=== PATIENT | female | born 1960 | race Caucasian/White ===

== ENCOUNTER 2016-10-19 15:27 | Emergency (ER) | payer OTHER ==
[~2016-10-19] VITALS: Ht 157.5 cm; Wt 110.0 kg
[~2016-10-19 15:27] MED LIST: CLON-379 PO; MECLIZINE PO
[2016-10-19 15:34] VITALS: Ht 157.5 cm; Wt 110.0 kg
[2016-10-19] MEDS ORDERED: SOD CHLORIDE 0.9% 500 ML IV STA (15:49)
[2016-10-19] MEDS ORDERED: ONDANSETRON 4 MG INJ IV STA (15:49)
[2016-10-19] MEDS ORDERED: BELLADONNA/PHENOBARBITAL TAB PO STA (15:49)
[2016-10-19] MEDS ORDERED: LIDOCAINE/MYLANTA 40 ML BTL PO STA (15:49)
[2016-10-19] MEDS ORDERED: ASPIRIN 325 MG TAB PO ONE (16:00)
[2016-10-19] MEDS ORDERED: LORAZEPAM 2 MG INJ IV ONE (16:00)
[2016-10-19 16:07] LABS: ADD UMIC YES; URINE BILIRUBIN (Dip) NEGATIVE (NEGATIVE); URINE BLOOD (Dip) TRACE (NEGATIVE); URINE COLOR LT. YELLOW (YELLOW); URINE GLUCOSE (Dip) NEGATIVE (NEGATIVE); URINE KETONES (Dip) NEGATIVE (NEGATIVE); URINE LEUKOCYTE ESTERASE (Dip) 2+ (NEGATIVE); URINE NITRITE (Dip) NEGATIVE (NEGATIVE); URINE TOTAL PROTEIN (Dip) TRACE (NEGATIVE); URINE UROBILINOGEN (Dip) 1.0 E.U./dL (0.1-1.0)
[2016-10-19 16:08] LABS: EOSINOPHILS % 0.5 % (0.0-7.0); HEMOGLOBIN 12.4 g/dl (12.0-16.0); LYMPHOCYTES # 0.5 10^3/ul (0.8-2.9); LYMPHOCYTES % 6.8 % (15.0-51.0); MEAN CORPUSCULAR HEMOGLOBIN 27.5 pg (29.0-33.0); MEAN CORPUSCULAR HGB CONC 33.5 g/dl (32.0-37.0); MEAN CORPUSCULAR VOLUME 82.1 fl (82.0-101.0); MEAN PLATELET VOLUME 6.6 fl (7.4-10.4); MONOCYTE # 0.4 10^3/ul (0.3-0.9); MONOCYTES % 5.8 % (0.0-11.0); NEUTROPHIL # 6.2 10^3/ul (1.6-7.5); NEUTROPHILS % 86.9 % (39.0-77.0); PLATELET COUNT 210 10^3/UL (140-440); RED BLOOD COUNT 4.51 10^6/ul (4.20-5.40); RED CELL DISTRIBUTION WIDTH 15.8 % (11.5-14.5); UNCORRECTED WBC 7.1 10^3/ul (4.8-10.8); WHITE BLOOD COUNT 7.1 10^3/ul (4.8-10.8)
--- NOTE | 2016-10-19 16:11 | RADRPT ---
PROCEDURE: XR Chest. CLINICAL INDICATION: Chest pain TECHNIQUE: Single portable view of the chest was obtained COMPARISON: 04/02/15 FINDINGS: The heart is enlarged. The lungs are clear. There is no pleural effusion or pneumothorax. RPTAT: AA IMPRESSION: Mild Cardiomegaly, stable. .Navdeep Obrien MD, MD Date Time Electronically viewed and signed by .Navdeep Obrien MD, on 10/19/2016 16:10 .S/
[2016-10-19 16:15] LABS: ALBUMIN 4.2 g/dl (3.3-4.9); CHLORIDE 100 mmol/L (97-110); POTASSIUM 4.5 mmol/L (3.5-5.1); SODIUM 140 mmol/L (135-144)
[2016-10-19 16:16] LABS: INR 0.98
[2016-10-19 16:17] LABS: BILIRUBIN,INDIRECT 0.4 mg/dl (0-1.1); BILIRUBIN,TOTAL 0.4 mg/dl (0.2-1.3); CREATININE 0.69 mg/dl (0.44-1.00)
[2016-10-19 16:18] LABS: ALANINE AMINOTRANSFERASE 34 IU/L (13-69); ALBUMIN/GLOBULIN RATIO 1.13; ALKALINE PHOSPHATASE 102 IU/L (42-121); ANION GAP 20 (8-16); ASPARTATE AMINO TRANSFERASE 30 IU/L (15-46); BLOOD UREA NITROGEN 14 mg/dl (7-20); CARBON DIOXIDE 25 mmol/L (21-31); GLUCOSE 110 mg/dl (70-220); TOTAL PROTEIN 7.9 g/dl (6.1-8.1)
[2016-10-19 16:20] LABS: CONDITION 1; LH ANALYZER COMMENTS 1
[2016-10-19 16:22] LABS: BACTERIA,URINE FEW; SQUAMOUS EPITHELIAL CELL,UR FEW
[2016-10-19] MEDS ORDERED: CALC-176 PO (16:26)
[2016-10-19] MEDS ORDERED: ERGO500014 PO (16:26)
[2016-10-19] MEDS ORDERED: ASPI-664 PO (16:27)
[2016-10-19] MEDS ORDERED: GABA100C14 PO (16:27)
[2016-10-19] MEDS ORDERED: LOSA100T7 PO (16:28)
[2016-10-19] MEDS ORDERED: PANT40TA3 PO (16:28)
[2016-10-19] MEDS ORDERED: HYD25 PO (16:29)
[2016-10-19] MEDS ORDERED: CEPHALEXIN 500 MG CAP PO ONE (16:30)
[2016-10-19] MEDS ORDERED: METO-429 PO (16:30)
[2016-10-19 16:31] LABS: TROPONIN-I < 0.010 ng/ml (0.00-0.12)
[2016-10-19] MEDS ORDERED: CEPH-443 PO (17:16)
--- NOTE | 2016-10-19 17:23 | ERD ---
ER Documentation Chief Complaint Date/Time DATE: 10/19/16 TIME: 17:18 Chief Complaint PRESSURE LIKE PAIN @ THELEFT AND MID CHEST TO EPIGASTRIC PAIN HPI 56-year-old woman presents with multiple complaints including left-sided sharp nonexertional nonradiating chest pain, epigastric burning pain similar to previous episodes, generalized weakness 2 days, and intermittent blanching and paresthesias, and pain to her fingertips. She states the symptoms in her fingers have been present intermittently for many years and with the discoloration she experiences pain and paresthesias to her fingertips. She also states the chest pain has been recurrent and intermittent about once to twice per week for many years. She denies fevers or chills, no dysuria, no loss of consciousness, no headache or neck pain, no blurry vision, no vomiting or diarrhea. ROS All systems reviewed and are negative except as per history of present illness. Medications Home Meds Active Scripts Cephalexin* (Keflex*) 500 Mg Capsule, 500 MG PO QID for 5 Days, CAP Prov:MONAE PRADO MD 10/19/16 Reported Medications Metoprolol Tartrate* (Lopressor*) 50 Mg Tab, 50 MG PO BID, #60 TAB 10/19/16 Hydrochlorothiazide* (Hydrochlorothiazide*) 25 Mg Tab, 25 MG PO DAILY, #30 TAB 10/19/16 Losartan Potassium* (Losartan Potassium*) 100 Mg Tablet, 100 MG PO DAILY, TAB 10/19/16 Pantoprazole* (Protonix*) 40 Mg Tablet.dr, 40 MG PO DAILY, TAB 10/19/16 Gabapentin* (Gabapentin*) 100 Mg Capsule, 100 MG PO DAILY, #30 CAP 10/19/16 Aspirin* (Aspirin* EC) 81 Mg Tablet.dr, 81 MG PO DAILY, TAB 10/19/16 Ergocalciferol* (Drisdol* (Vitamin D2)) 50,000 Unit Capsule, 95676 UNIT PO Q7D, CAP 10/19/16 Calcium Cmb 2-Mag Cmb 12-Vit D3 (Calcium 500) 1 Each Tablet, 1 TAB PO BID, TAB 10/19/16 Discontinued Reported Medications [Meclizine] No Conflict Check, 0 PO 08/24/13 Discontinued Scripts Clonidine Hcl* (Clonidine Hcl*) 0.1 Mg Tab, 0.1 MG PO BID Y for htn, #30 Prov:MEEK KELLEY 04/02/15 Allergies Allergies: Coded Allergies: ibuprofen (Verified Allergy, Unknown, 10/19/16) PMhx/Soc Hypertension, obesity, anxiety, Raynauds, gastritis, obesity History of Surgery: No Anesthesia Reaction: No Hx Respiratory Disorders: No Hx Cardiac Disorders: Yes (HTN ) Hx Psychiatric Problems: No Hx Miscellaneous Medical Probl: Yes (VERTIGO) Hx Alcohol Use: No Hx Substance Use: No Hx Tobacco Use: No Smoking Status: Never smoker FmHx Family History: No diabetes Physical Exam Vitals Vital Signs Date Time Temp Pulse Resp B/P Pulse Ox O2 Delivery O2 Flow Rate FiO2 10/19/16 17:31 98.6 86 18 148/86 99 Room Air 2.0 Nasal Cannula 10/19/16 16:31 90 18 168/79 99 Nasal Cannula 2.0 10/19/16 15:34 98 103 176/78 97 Physical Exam GENERAL: Well-developed, well-nourished, well-hydrated, in no apparent distress , anxious HEENT: Moist mucous membranes, pink conjunctiva, no cervical spine tenderness or step-off deformities, no goiter, no jaundice or icterus, extraocular movements intact without pain. No submandibular induration, and no pharyngeal erythema NEURO: Alert and oriented 3, cranial nerves II through XII intact bilaterally, pupils equal round reactive to light, no focal deficits or facial asymmetry, sensation intact distally Strength 5/5 in upper and lower extremities bilaterally CARDIAC: Regular rate and rhythm, no murmurs rubs or gallops LUNGS: Clear bilaterally no wheezing crackles or stridor ABDOMEN: Soft nontender, no guarding, no rigidity, no rebound, no psoas sign no obturator sign. Normoactive bowel sounds SKIN: Warm and dry to touch, no abrasions, contusions, or hematomas, no lacerations, no ecchymosis, no target lesions, and without ulcers EXTREMITIES: No clubbing cyanosis or edema, calves are bilaterally symmetrical, no Homans sign, no popliteal cord sign. Distal pulses equal and bilateral PSYCH: Appears in Result Diagram: 10/19/16 1550 10/19/16 1550 Results 24 hrs Laboratory Tests Test 10/19/16 15:50 Alanine Aminotransferase (ALT/SGPT) 34IU/L Albumin 4.2g/dl Albumin/Globulin Ratio 1.13 Alkaline Phosphatase 102IU/L Anion Gap 20 Aspartate Amino Transf (AST/SGOT) 30IU/L Basophils # 0.010^3/ul Basophils % 0.0% Blood Morphology Comment Blood Urea Nitrogen 14mg/dl Calcium Level 9.0mg/dl Carbon Dioxide Level 25mmol/L Chloride Level 100mmol/L Creatinine 0.69mg/dl Direct Bilirubin 0.00mg/dl Eosinophils # 0.010^3/ul Eosinophils % 0.5% Globulin 3.70g/dl Glucose Level 110mg/dl Hematocrit 37.0% Hemoglobin 12.4g/dl INR International Normalized Ratio 0.98 Indirect Bilirubin 0.4mg/dl Lipase 53U/L Lymphocytes # 0.510^3/ul Lymphocytes % 6.8% Mean Corpuscular Hemoglobin 27.5pg Mean Corpuscular Hemoglobin Concent 33.5g/dl Mean Corpuscular Volume 82.1fl Mean Platelet Volume 6.6fl Monocytes # 0.410^3/ul Monocytes % 5.8% Neutrophils # 6.210^3/ul Neutrophils % 86.9% Nucleated Red Blood Cells # 0.010^3/ul Nucleated Red Blood Cells % 0.0/100WBC Platelet Count 58815^3/UL Potassium Level 4.5mmol/L Prothrombin Time 13.0Sec Prothrombin Time Ratio 1.0 Red Blood Count 4.5110^6/ul Red Cell Distribution Width 15.8% Sodium Level 140mmol/L Total Bilirubin 0.4mg/dl Total Protein 7.9g/dl Troponin I < 0.010ng/ml Urine Bacteria FEW Urine Bilirubin NEGATIVE Urine Clarity CLEAR Urine Color LT. YELLOW Urine Glucose NEGATIVE% Urine Hemoglobin TRACE Urine Ketones NEGATIVE Urine Leukocyte Esterase 2+ Urine Microscopic RBC 2-5/HPF Urine Microscopic WBC 10-25/HPF Urine Nitrite NEGATIVE Urine Specific [place] 1.015 Urine Squamous Epithelial Cells FEW Urine Total Protein TRACE Urine Urobilinogen 1.0 E.U./dL Urine pH 7.0 White Blood Count 7.110^3/ul Current Medications Medications (Trade) Dose Ordered Sig/Checo Route PRN Reason Start Time Stop Time Status Last Admin Dose Admin Sodium Chloride (NS) 500 ml @ 500 mls/hr Q1H STAT IV 10/19/16 15:49 10/19/16 16:48 DC 10/19/16 15:59 Ondansetron HCl (Zofran Inj) 4 mg ONCE STAT IV 10/19/16 15:49 10/19/16 15:52 DC 10/19/16 15:58 Miscellaneous Medication (Gi Cocktail (2)) 40 ml ONCE STAT PO 10/19/16 15:49 10/19/16 15:52 DC 10/19/16 15:58 Bell[place]onna/ Phenobarbital () 2 tab ONCE STAT PO 10/19/16 15:49 10/19/16 15:52 DC 10/19/16 15:58 Lorazepam (Ativan) 0.5 mg ONCE ONCE IV 10/19/16 16:00 10/19/16 16:01 DC 10/19/16 15:58 Aspirin (Aspirin) 325 mg ONCE ONCE PO 10/19/16 16:00 10/19/16 16:01 DC 10/19/16 15:58 Cephalexin (Keflex) 500 mg ONCE ONCE PO 10/19/16 16:30 10/19/16 16:31 DC 10/19/16 16:30 Procedures/MDM IV line was established patient was placed on vice president business development rhythm strip revealed a sinus tachycardia at about 110 bpm with upright P and T waves. Patient was afebrile. I administered 500 cc normal saline intravenously, lorazepam 0.5 mg IV, GI cocktail 50 cc p.o., Zofran 4 mg IV, and aspirin 325 mg p.o. with good effect. EKG performed, read by me revealed a sinus tachycardia at 107 bpm, left axis deviation, narrow QRS complex, no concerning ST elevations or depressions noted. Chest X-ray 1V Interpreted by me: Soft Tissue: No acute abnormalities Bones: No acute abnormalities Mediastinum/Cardiac Silhouette/Lungs: No acute abnormalities CBC and electrolytes were unremarkable, liver function tests were normal, troponin was negative. Urinalysis is positive for infection. I treated the patient here with cephalexin 500 mg p.o. with good effect. Differential diagnoses considered, included but not limited to acute coronary syndrome, pulmonary embolism, aortic dissection, abdominal aortic aneurysm, sepsis, stroke, meningitis, encephalitis, pneumonia, appendicitis, cholecystitis , bowel obstruction, pyelonephritis, nephrolithiasis, cystitis, as well as metabolic, hematologic, and electrolyte abnormalities. As well as abscess, cellulitis, fractures, and dislocations. Patient feels much better at this time, and vital signs are normal, symptoms have improved. I did give strict instructions to return to the ED if symptoms continue or worsen, patient will otherwise follow-up with primary care physician. Patient understood instructions and agreed to plan. Departure Diagnosis: Primary Impression: UTI (urinary tract infection) Urinary tract infection type: acute cystitis Hematuria presence: without hematuria Qualified Code: N30.00 - Acute cystitis without hematuria Additional Impressions: Hypertension Hypertension type: essential hypertension Qualified Code: I10 - Essential hypertension Raynauds disease Raynaud?s-associated gangrene presence: without gangrene Qualified Code: I73.00 - Raynaud's disease without gangrene Chest pain Chest pain type: unspecified Qualified Code: R07.9 - Chest pain, unspecified type Condition: Good Patient Instructions: Raynaud's Disease, High Blood Pressure (Hypertension), Bladder Infection, Female (Adult) MONAE PRADO MD Oct 19, 2016 17:23
[2016-10-19 17:31] VITALS: BP 148/86; PULSE 86; RESP 18; TEMP 98.6
== END 2016-10-19 17:32 | disposition home or self-care (01) ==
LOC: E/R 15:27
DX: N30.00 Acute cystitis without hematuria (principal); I10 Essential (primary) hypertension; I73.00 Raynaud's syndrome without gangrene; R40.2142 Coma scale, eyes open, spontaneous, at arrival to emergency department; R40.2362 Coma scale, best motor response, obeys commands, at arrival to emergency department; R40.2252 Coma scale, best verbal response, oriented, at arrival to emergency department; Z79.82 Long term (current) use of aspirin
CPT/HCPCS: 36415; 71010; 80053; 81001; 83690; 84484; 85025; 85610; 93005; 96374; 96375; J2060; J2405; J7040; Z7502; Z7610; 81003

== ENCOUNTER 2016-11-03 22:10 | Emergency (ER) | payer OTHER ==
[~2016-11-03] VITALS: Ht 160 cm; Wt 106.5 kg
[~2016-11-03 22:10] MED LIST changes: +ASPI-664 PO; +CALC-176 PO; +CEPH-443 PO; -CLON-379 PO; +ERGO500014 PO; +GABA100C14 PO; +HYD25 PO; +LOSA100T7 PO; -MECLIZINE PO; +METO-429 PO; +PANT40TA3 PO
[2016-11-03 22:20] VITALS: Ht 160 cm; Wt 106.5 kg
[2016-11-03] MEDS ORDERED: GUAI118L22 PO (22:53)
[2016-11-03] MEDS ORDERED: FLUT9.9S NASAL (22:53)
--- NOTE | 2016-11-03 22:58 | ERD ---
ER Documentation Chief Complaint Date/Time DATE: 11/03/16 TIME: 22:57 Chief Complaint cough, body aches x 4 days HPI 56 year old female comes in with a cough, congestion, sore throat, body aches x 4 days. No chest pain, shortness of breath. No vomiting, diarrhea. ROS All systems reviewed and are negative except as per history of present illness. Medications Home Meds Active Scripts Fluticasone Propionate (Flonase Allergy Relief) 9.9 Ml [place].susp, 1 SPRAY NASAL DAILY, #1 BOTTLE TO EACH NOSTRIL Prov:BRICE BRANCH PA-C 11/03/16 Guaifenesin/Codeine Phosphate (CHERATUSSIN AC SYRUP) 118 Ml Liquid, 5 ML PO Q4H Y for COUGH, #118 ML Prov:BRICE BRANCH PA-C 11/03/16 Cephalexin* (Keflex*) 500 Mg Capsule, 500 MG PO QID for 5 Days, CAP Prov:MONAE PRADO MD 10/19/16 Reported Medications Metoprolol Tartrate* (Lopressor*) 50 Mg Tab, 50 MG PO BID, #60 TAB 10/19/16 Hydrochlorothiazide* (Hydrochlorothiazide*) 25 Mg Tab, 25 MG PO DAILY, #30 TAB 10/19/16 Losartan Potassium* (Losartan Potassium*) 100 Mg Tablet, 100 MG PO DAILY, TAB 10/19/16 Pantoprazole* (Protonix*) 40 Mg Tablet.dr, 40 MG PO DAILY, TAB 10/19/16 Gabapentin* (Gabapentin*) 100 Mg Capsule, 100 MG PO DAILY, #30 CAP 10/19/16 Aspirin* (Aspirin* EC) 81 Mg Tablet.dr, 81 MG PO DAILY, TAB 10/19/16 Ergocalciferol* (Drisdol* (Vitamin D2)) 50,000 Unit Capsule, 42968 UNIT PO Q7D, CAP 10/19/16 Calcium Cmb 2-Mag Cmb 12-Vit D3 (Calcium 500) 1 Each Tablet, 1 TAB PO BID, TAB 10/19/16 Allergies Allergies: Coded Allergies: ibuprofen (Verified Allergy, Unknown, 10/19/16) PMhx/Soc History of Surgery: No Anesthesia Reaction: No Hx Respiratory Disorders: No Hx Cardiac Disorders: Yes (HTN ) Hx Psychiatric Problems: No Hx Miscellaneous Medical Probl: Yes (VERTIGO) Hx Alcohol Use: No Hx Substance Use: No Hx Tobacco Use: No Physical Exam Vitals Vital Signs Date Time Temp Pulse Resp B/P Pulse Ox O2 Delivery O2 Flow Rate FiO2 11/03/16 22:20 99.8 95 20 141/68 99 Physical Exam General: Well-developed, well-nourished. The patient appears in no acute distress. HEENT: Head is normocephalic, atraumatic. No scleral icterus. Pupils are equal , round, and reactive. Oral mucous membranes are moist. No pharyngeal erythema. Neck: Supple. Nontender. Lungs: Clear to auscultation. Normal air movement. Heart: Regular rate and rhythm. S1 and S2 are normal. No murmurs, gallops, or rubs. Abdomen: Soft, nontender, nondistended. Bowel sounds are normoactive. Extremities: No clubbing or cyanosis. Normal pulses. Moving extremities x 4. No weakness. Neurologic: Alert and oriented 3. No focal deficits. Skin: Normal turgor. No rash or lesions. Procedures/MDM The patient is a 56-year-old female who comes in with an acute upper respiratory infection, presumed viral. The patient has a differential diagnosis of a viral upper respiratory infection, bacterial upper respiratory infection, bronchitis, pneumonia, pharyngitis, laryngitis, epiglottitis, croup, pneumonia. Patient has a normal pulmonary examination, clear breath sounds, normal pulse oximetry, with no corrective measures needed at this time. Fluids, rest, antipyretics were encouraged. Patient's blood pressure was elevated (>120/80) but appears stable without evidence of hypertension emergency or urgency. The patient was counseled about the risks of hypertension and urged to pursue outpatient monitoring and therapy within a week with their primary care physician. Departure Diagnosis: Primary Impression: Acute URI Condition: Good Patient Instructions: Uri, Viral, No Abx (Adult) Additional Instructions: Call your primary care doctor TOMORROW for an appointment during the next 1-2 days.See the doctor sooner or return here if your condition worsens before your appointment time. BRICE BRANCH PA-C Nov 03, 2016 22:58
[2016-11-03 23:59] VITALS: BP 139/77; PULSE 79; RESP 18; TEMP 98.7
== END 2016-11-04 | disposition home or self-care (01) ==
LOC: FTE 22:10
DX: J06.9 Acute upper respiratory infection, unspecified (principal); I10 Essential (primary) hypertension; Z79.82 Long term (current) use of aspirin
CPT/HCPCS: 99283

== ENCOUNTER 2017-03-11 14:11 | Emergency (ER) | payer OTHER ==
[~2017-03-11] VITALS: Ht 162.6 cm; Wt 107.0 kg
[~2017-03-11 14:11] MED LIST changes: +FLUT9.9S NASAL; +GUAI118L22 PO
[2017-03-11 14:42] VITALS: Ht 162.6 cm; Wt 107.0 kg
--- NOTE | 2017-03-11 18:13 | RADRPT ---
PROCEDURE: XR Right Ankle. CLINICAL INDICATION: Status post fall. TECHNIQUE: AP, oblique and lateral views of the right ankle were performed. COMPARISON: None. FINDINGS: There is soft tissue swelling around the ankle greater over the lateral malleolus. Ankle mortise is normal. The there is a plantar spur off of the right os calcaneus. There is an enthesiophyte at t he insertion site of the Achilles tendon to the right os calcaneus. There is a degenerative spur off of the dorsal articular surface of the distal right tibia. There is a small spur like projection o ff of the medial malleolus. There is some lucency associated with this spur. There is a high index of suspicion for a fracture at the site, a CT scan can be performed for evaluation. IMPRESSION: 1. Soft tissue swelling is around the circumference of the right ankle with a spur noted off of the medial malleolus associated with some crescent like lucency. A small avulsion fracture at this site cannot be entirely excluded but this is likely degenerative in nature. A CT scan can be performed for further evaluation if there is a high index of clinical suspicion for a fracture at the site. 2. Otherwise, unremarkable right ankle. RPTAT:AAJJ Physician Nusrat Date Time Electronically viewed and signed by Physician Nusrat on 03/11/2017 18:13 /
[2017-03-11] MEDS ORDERED: HYDR-902 PO (18:53)
--- NOTE | 2017-03-11 18:57 | ERD ---
ER Documentation Chief Complaint Date/Time DATE: 03/11/17 TIME: 18:54 Chief Complaint S/P SLIPPED AND FALL,RIGHT ANKLE PAIN HPI This is a 56-year-old female who slipped while walking and fell and twisted her right ankle and landed on her left knee. She has minimal to no left knee pain she is complaining of some moderate to severe right ankle pain because she twisted her leg. She does not have any numbness or weakness. She has some pain in the right ankle as described as sharp worse with movement better with rest. No loss of consciousness denies headache neck pain back pain chest pain other show any pain no abdominal ROS All systems reviewed and are negative except as per history of present illness. Medications Home Meds Active Scripts Hydrocodone/Acetaminophen ([place] 10-325 Tablet) 1 Each Tablet, 1 TAB PO Q6H Y for PAIN, #20 TAB Prov:GOGO NEVAREZ DO 03/11/17 Fluticasone Propionate (Flonase Allergy Relief) 9.9 Ml [place].susp, 1 SPRAY NASAL DAILY, #1 BOTTLE TO EACH NOSTRIL Prov:BRICE BRANCH PA-C 11/03/16 Guaifenesin/Codeine Phosphate (CHERATUSSIN AC SYRUP) 118 Ml Liquid, 5 ML PO Q4H Y for COUGH, #118 ML Prov:BRICE BRANCH PA-C 11/03/16 Cephalexin* (Keflex*) 500 Mg Capsule, 500 MG PO QID for 5 Days, CAP Prov:MONAE PRADO MD 10/19/16 Reported Medications Metoprolol Tartrate* (Lopressor*) 50 Mg Tab, 50 MG PO BID, #60 TAB 10/19/16 Hydrochlorothiazide* (Hydrochlorothiazide*) 25 Mg Tab, 25 MG PO DAILY, #30 TAB 10/19/16 Losartan Potassium* (Losartan Potassium*) 100 Mg Tablet, 100 MG PO DAILY, TAB 10/19/16 Pantoprazole* (Protonix*) 40 Mg Tablet.dr, 40 MG PO DAILY, TAB 10/19/16 Gabapentin* (Gabapentin*) 100 Mg Capsule, 100 MG PO DAILY, #30 CAP 10/19/16 Aspirin* (Aspirin* EC) 81 Mg Tablet.dr, 81 MG PO DAILY, TAB 10/19/16 Ergocalciferol* (Drisdol* (Vitamin D2)) 50,000 Unit Capsule, 18051 UNIT PO Q7D, CAP 10/19/16 Calcium Cmb 2-Mag Cmb 12-Vit D3 (Calcium 500) 1 Each Tablet, 1 TAB PO BID, TAB 10/19/16 Allergies Allergies: Coded Allergies: ibuprofen (Verified Allergy, Unknown, 10/19/16) PMhx/Soc History of Surgery: Yes (appendectomy, vein surgery) Anesthesia Reaction: No Hx Neurological Disorder: Yes (vertigo) Hx Respiratory Disorders: No Hx Cardiac Disorders: Yes (HTN, "heart problems") Hx Psychiatric Problems: No Hx Miscellaneous Medical Probl: No Hx Alcohol Use: No Hx Substance Use: No Hx Tobacco Use: No Smoking Status: Never smoker FmHx Family History: No coronary disease Physical Exam Vitals Vital Signs Date Time Temp Pulse Resp B/P Pulse Ox O2 Delivery O2 Flow Rate FiO2 03/11/17 14:42 98.1 83 18 138/65 98 Physical Exam Const: Well-developed, well-nourished Head: Atraumatic, normocephalic Eyes: Normal Conjunctiva, PERRLA, EOMI, normal sclera, no nystagmus ENT: Normal External Ears, Nose and Mouth, moist mucus membranes. Neck: Full range of motion. No meningismus, no lymphadenopathy. Resp: Clear to auscultation bilaterally, no wheezing, rhonchi, rales Cardio: Regular rate and rhythm, no murmurs, S1 S2 present Abd: Soft, non tender x 4, non distended. Normal bowel sounds, no guarding or rebound, no pulsitile abdominal masses or bruits Skin: No petechiae or rashes, no ecchymosis , no maculopapular rash Back: No midline or flank tenderness Ext: No cyanosis, or edema, FROM x 4, normal inspection, neurovascularly intact x 4, the right ankle has some diffuse mild swelling circumferentially is no ligamentous laxity there is pain with range of motion Neur: Awake and alert, STR 5/5 x 4, sensation intact x 4, no focal findings, cerebellum intact Psych: Normal Mood and Affect Procedures/MDM PROCEDURE: XR Right Ankle. CLINICAL INDICATION: Status post fall. TECHNIQUE: AP, oblique and lateral views of the right ankle were performed. COMPARISON: None. FINDINGS: There is soft tissue swelling around the ankle greater over the lateral malleolus. Ankle mortise is normal. The there is a plantar spur off of the right os calcaneus. There is an enthesiophyte at the insertion site of the Achilles tendon to the right os calcaneus. There is a degenerative spur off of the dorsal articular surface of the distal right tibia. There is a small spur like projection off of the medial malleolus. There is some lucency associated with this spur. There is a high index of suspicion for a fracture at the site, a CT scan can be performed for evaluation. IMPRESSION: 1. Soft tissue swelling is around the circumference of the right ankle with a spur noted off of the medial malleolus associated with some crescent like lucency. A small avulsion fracture at this site cannot be entirely excluded but this is likely degenerative in nature. A CT scan can be performed for further evaluation if there is a high index of clinical suspicion for a fracture at the site. 2. Otherwise, unremarkable right ankle. RPTAT:AAJJ Ken Marvin Physician Date Time Electronically viewed and signed by Ken Marvin Physician on 03/11/2017 18:13 JM/ CC: GOGO NEVAREZ DO Patient was given crutches and a posterior ankles Departure Diagnosis: Primary Impression: Right ankle sprain Encounter type: initial encounter Involved ligament of ankle: other ligament Qualified Code: S93.491A - Sprain of other ligament of right ankle, initial encounter Condition: Stable Patient Instructions: Treating Ankle Sprains Referrals: JOSE SANCHEZ MD, APOSTOLOS A. DO Mar 11, 2017 18:57
== END 2017-03-11 19:06 | disposition home or self-care (01) ==
LOC: FTE 14:11
DX: S93.491A Sprain of other ligament of right ankle, initial encounter (principal); I10 Essential (primary) hypertension; W01.0XXA Fall on same level from slipping, tripping and stumbling without subsequent striking against object, initial encounter; Y92.9 Unspecified place or not applicable; Z79.82 Long term (current) use of aspirin
CPT/HCPCS: 29515; 73610; Z7502